=== PATIENT | male | born 1985 | race Caucasian/White ===

== ENCOUNTER 2016-12-10 13:38 | Emergency (ER) | payer OTHER ==
[~2016-12-10] VITALS: Ht 180.3 cm; Wt 90.5 kg
[2016-12-10 13:48] VITALS: Ht 180.3 cm; Wt 90.5 kg
[2016-12-10 14:06] VITALS: BP 139/84
[2016-12-10 15:10] LABS: BASOPHILS % 0.2 % (0.0-2.0); EOSINOPHILS # 0.1 10^3/ul (0.0-0.5); EOSINOPHILS % 1.5 % (0.0-7.0); LYMPHOCYTES # 1.3 10^3/ul (0.8-2.9); LYMPHOCYTES % 25.7 % (15.0-51.0); MEAN CORPUSCULAR HEMOGLOBIN 29.5 pg (29.0-33.0); MEAN CORPUSCULAR HGB CONC 33.4 g/dl (32.0-37.0); MEAN CORPUSCULAR VOLUME 88.4 fl (82.0-101.0); MEAN PLATELET VOLUME 7.5 fl (7.4-10.4); MONOCYTE # 0.4 10^3/ul (0.3-0.9); MONOCYTES % 7.9 % (0.0-11.0); NEUTROPHIL # 3.3 10^3/ul (1.6-7.5); NEUTROPHILS % 64.7 % (39.0-77.0); PLATELET COUNT 228 10^3/UL (140-440); RED BLOOD COUNT 5.09 10^6/ul (4.70-6.10); RED CELL DISTRIBUTION WIDTH 13.3 % (11.5-14.5); UNCORRECTED WBC 5.1 10^3/ul (4.8-10.8); WHITE BLOOD COUNT 5.1 10^3/ul (4.8-10.8)
[2016-12-10 15:12] LABS: CONDITION 1
[2016-12-10 15:18] LABS: ADD UMIC NO; URINE BILIRUBIN (Dip) NEGATIVE (NEGATIVE); URINE BLOOD (Dip) NEGATIVE (NEGATIVE); URINE COLOR YELLOW (YELLOW); URINE GLUCOSE (Dip) NEGATIVE (NEGATIVE); URINE KETONES (Dip) 15 (NEGATIVE); URINE LEUKOCYTE ESTERASE (Dip) NEGATIVE (NEGATIVE); URINE NITRITE (Dip) NEGATIVE (NEGATIVE); URINE TOTAL PROTEIN (Dip) NEGATIVE (NEGATIVE); URINE UROBILINOGEN (Dip) 0.2 E.U./dL (0.1-1.0)
[2016-12-10 15:21] LABS: POTASSIUM 4.1 mmol/L (3.5-5.1)
[2016-12-10 15:23] LABS: CREATININE 0.86 mg/dl (0.61-1.24)
[2016-12-10 15:24] LABS: ALBUMIN/GLOBULIN RATIO 1.35; BILIRUBIN,INDIRECT 1.3 mg/dl (0-1.1); BILIRUBIN,TOTAL 1.3 mg/dl (0.2-1.3); CALCIUM 9.6 mg/dl (8.4-10.2); TOTAL PROTEIN 8.7 g/dl (6.1-8.1)
--- NOTE | 2016-12-10 15:41 | RADRPT ---
PROCEDURE: CT Abdomen and Pelvis without contrast. CLINICAL INDICATION: Abdominal pain. Black stool. TECHNIQUE: CT scan of the abdomen and pelvis without contrast was performed on a multi-slice CT sc sorin without intravenous contrast. Coronal and sagittal reformatted images were obtained from the axial source images. Images were reviewed on a high-resolution PACS workstation. One or more of the following does reduction techniques were used: Automated exposure control; adjustment of the mA an d/or kV according to patient size; use of the aorta of reconstruction technique. The total exam CTD I equals 16.7 mGy and the total exam DLP equals 944.6 mGy-cm. COMPARISON: None available. FINDINGS: The lung bases are clear. Heart size is normal, and there is no evidence of pericardial thickening or effusion. The liver, spleen, and pancreas are normal given limitations of a noncontrast CT examination. Galls tones are identified within the gallbladder. There is no pericholecystic inflammatory change or hank dence of gallbladder wall thickening. The adrenal glands are normal. The kidneys without renal calculus or hydronephrosis. The aorta is of normal caliber. There is no retroperitoneal lymph node enlargment. There is no evidence of large or small bowel obstruction. There is moderate to large retained colon ic stool. Portions of a normal appendix are identified. There is no evidence of acute appendicitis . No free fluid or fluid collections are identified. No inflammatory changes are seen. There is a small periumbilical hernia containing only fat No enlarged pelvic sidewall lymph nodes are seen. The bladder is decompressed and collapsed. No f ree fluid is identified. The inguinal regions are unremarkable. The bones are intact. IMPRESSION: 1. No CT evidence of acute intra-abdominal or pelvic process. 2. Cholelithiasis. 3. Pfcnwjin-xc-onpwk retained colonic stool, correlate with constipation. 4. Small periumbilical hernia containing only fat. RPTAT: KK .Mil Avalos MD, MD Date Time Electronically viewed and signed by .Mil Avalos MD, MD on 12/10/2016 15:41 .B/
--- NOTE | 2016-12-10 15:49 | ERD ---
ER Documentation Chief Complaint Date/Time DATE: 12/10/16 TIME: 15:43 Chief Complaint Blood in stool and AP X 10days. HPI This is a 31-year-old male who presents to the emergency department today with complaints of black stool and abdominal pain. Patient states that one month ago he was diagnosed with a radial head fracture and has been taking 2-3 Motrin pills per day. States he has had this black stool and abdominal pain for the past 7-10 days. Denies any vomiting or diarrhea. Denies any fevers or chills. ROS All systems reviewed and are negative except as per history of present illness. Medications Home Meds Active Scripts Famotidine* (Pepcid*) 20 Mg Tablet, 20 MG PO BID for 10 Days, TAB Prov:DIETER CARROLL PA-C 12/10/16 Hydrocodone/Acetaminophen ([place] 10-325 Tablet) 1 Each Tablet, 1 TAB PO Q6H Y for PAIN, #20 TAB Prov:DIETER CARROLL PA-C 12/10/16 Acetaminophen* (Tylophen*) 500 Mg Capsule, 1 CAP PO Q6H Y for PAIN AND OR ELEVATED TEMP, #30 CAP Prov:DIETER CARROLL PA-C 12/10/16 Allergies Allergies: Coded Allergies: No Known Allergy (Unverified , 12/10/16) PMhx/Soc History of Surgery: No Anesthesia Reaction: No Hx Neurological Disorder: No Hx Respiratory Disorders: Yes (ASTHMA) Hx Cardiac Disorders: No Hx Psychiatric Problems: No Hx Miscellaneous Medical Probl: No Hx Alcohol Use: No Hx Substance Use: No Hx Tobacco Use: No Smoking Status: Never smoker Physical Exam Vitals Vital Signs Date Time Temp Pulse Resp B/P Pulse Ox O2 Delivery O2 Flow Rate FiO2 12/10/16 14:06 139/84 12/10/16 13:48 98.5 99 18 164/102 100 Physical Exam Const: No acute distress Head: Atraumatic Eyes: Normal Conjunctiva ENT: Normal External Ears, Nose and Mouth. Neck: Full range of motion..~ No meningismus. Resp: Clear to auscultation bilaterally Cardio: Regular rate and rhythm, no murmurs Abd: Soft, epigastric and diffuse lower abdominal pain non distended. Normal bowel sounds. No tenderness at McBurney's. Skin: No petechiae or rashes Neur: Awake and alert Psych: Normal Mood and Affect Result Diagram: 12/10/16 1455 12/10/16 1455 Results 24 hrs Laboratory Tests Test 12/10/16 14:55 12/10/16 15:10 Alanine Aminotransferase (ALT/SGPT) 24IU/L Albumin 5.0g/dl Albumin/Globulin Ratio 1.35 Alkaline Phosphatase 70IU/L Anion Gap 19 Aspartate Amino Transf (AST/SGOT) 32IU/L Basophils # 0.010^3/ul Basophils % 0.2% Blood Urea Nitrogen 15mg/dl Calcium Level 9.6mg/dl Carbon Dioxide Level 29mmol/L Chloride Level 100mmol/L Creatinine 0.86mg/dl Direct Bilirubin 0.00mg/dl Eosinophils # 0.110^3/ul Eosinophils % 1.5% Globulin 3.70g/dl Glucose Level 93mg/dl Hematocrit 45.0% Hemoglobin 15.0g/dl Indirect Bilirubin 1.3mg/dl Lipase 400U/L Lymphocytes # 1.310^3/ul Lymphocytes % 25.7% Mean Corpuscular Hemoglobin 29.5pg Mean Corpuscular Hemoglobin Concent 33.4g/dl Mean Corpuscular Volume 88.4fl Mean Platelet Volume 7.5fl Monocytes # 0.410^3/ul Monocytes % 7.9% Neutrophils # 3.310^3/ul Neutrophils % 64.7% Nucleated Red Blood Cells # 0.010^3/ul Nucleated Red Blood Cells % 0.0/100WBC Platelet Count 65553^3/UL Potassium Level 4.1mmol/L Red Blood Count 5.0910^6/ul Red Cell Distribution Width 13.3% Sodium Level 144mmol/L Stool Occult Blood NEGATIVE Total Bilirubin 1.3mg/dl Total Protein 8.7g/dl White Blood Count 5.110^3/ul Urine Bilirubin NEGATIVE Urine Clarity CLEAR Urine Color YELLOW Urine Glucose NEGATIVE% Urine Hemoglobin NEGATIVE Urine Ketones 15 Urine Leukocyte Esterase NEGATIVE Urine Nitrite NEGATIVE Urine Specific [place] >=1.030 Urine Total Protein NEGATIVE Urine Urobilinogen 0.2 E.U./dL Urine pH 6.0 Patient: JESSENIA GARZA : 1985 Age: 31 Sex: M MR #: [id number] DOS: 12/10/16 1448 Ordering MD: DIETER CARROLL PA-C Location: [facility] Room/Bed: PROCEDURE: CT Abdomen and Pelvis without contrast. CLINICAL INDICATION: Abdominal pain. Black stool. TECHNIQUE: CT scan of the abdomen and pelvis without contrast was performed on a multi-slice CT scanner without intravenous contrast. Coronal and sagittal reformatted images were obtained from the axial source images. Images were reviewed on a high-resolution PACS workstation. One or more of the following does reduction techniques were used: Automated exposure control; adjustment of the mA and/or kV according to patient size; use of the aorta of reconstruction technique. The total exam CTDI equals 16.7 mGy and the total exam DLP equals 944.6 mGy-cm. COMPARISON: None available. FINDINGS: The lung bases are clear. Heart size is normal, and there is no evidence of pericardial thickening or effusion. The liver, spleen, and pancreas are normal given limitations of a noncontrast CT examination. Gallstones are identified within the gallbladder. There is no pericholecystic inflammatory change or evidence of gallbladder wall thickening. The adrenal glands are normal. The kidneys without renal calculus or hydronephrosis. The aorta is of normal caliber. There is no retroperitoneal lymph node enlargment. There is no evidence of large or small bowel obstruction. There is moderate to large retained colonic stool. Portions of a normal appendix are identified. There is no evidence of acute appendicitis. No free fluid or fluid collections are identified. No inflammatory changes are seen. There is a small periumbilical hernia containing only fat No enlarged pelvic sidewall lymph nodes are seen. The bladder is decompressed and collapsed. No free fluid is identified. The inguinal regions are unremarkable. The bones are intact. IMPRESSION: 1. No CT evidence of acute intra-abdominal or pelvic process. 2. Cholelithiasis. 3. Ampzfscd-vr-naqws retained colonic stool, correlate with constipation. 4. Small periumbilical hernia containing only fat. RPTAT: KK .Mil Avalos MD, MD Date Time Electronically viewed and signed by .Mil Avalos MD, MD on 2016 15:41 .B/ CC: DIETER CARROLL PA-C Procedures/[facility] This 31-year-old male who presented to the emergency department today complaining of abdominal pain and black stool for the past 7-10 days. Patient had been taking 2-3 Motrin pills per day. Patient did have some diffuse abdominal pain as well as epigastric pain and therefore did obtain laboratory work as well as imaging. Laboratory work shows no elevated white blood cell count. He is not anemic. Platelets are within normal limits. Left lites are within normal limits. Liver function is within normal limits. Lipase is elevated. UA negative. Fecal occult is negative CT abdomen and pelvis noncontrast shows gallstones. There is No evidence of acute intra-abdominal or pelvic process. There is no evidence of large or small bowel obstruction. There is moderate to large retained colonic stool. Appendix is normal. No evidence of acute appendicitis. There is no free fluid or fluid collections. There is a small periumbilical hernia containing only fat. Patient abdominal pain may be related to his gallstone and biliary colic. Patient's lipase is elevated however I have low suspicion for acute pancreatitis. Patient's epigastric pain may be related to gastritis versus ulcer. I have explained this to the patient. Patient declined pain medication here in the emergency department as he did not want to take any occasion at this time. Given the prescription for [place] for severe pain otherwise he may take Tylenol. I'll also give him a prescription for Pepcid. At this time the patient is stable for discharge and outpatient management. Patient should follow up with their PCP in the next 1-2 days. They may return to the emergency department sooner for any persistent or worsening of symptoms. Patient understood and agreed with the plan. At this time the patient is stable for discharge and outpatient management. Patient should follow up with their PCP in the next 1-2 days for referral to general surgery GI specialist. They may return to the emergency department sooner for any persistent or worsening of symptoms. Patient understood and agreed with the plan. Discussed the patient with Dr. Larios and he taken he is in agreement with the plan Departure Diagnosis: Primary Impression: Abdominal pain Abdominal location: generalized Qualified Code: R10.84 - Generalized abdominal pain Additional Impression: Gallstones Condition: Fair DIETER CARROLL PA-C Dec 10, 2016 15:49
[2016-12-10] MEDS ORDERED: HYDR-902 PO (16:11)
[2016-12-10] MEDS ORDERED: ACET500C5 PO (16:11)
[2016-12-10] MEDS ORDERED: FAMO-18 PO (16:12)
== END 2016-12-10 16:21 | disposition home or self-care (01) ==
LOC: FTE 13:38
DX: R10.84 Generalized abdominal pain (principal); K80.20 Calculus of gallbladder without cholecystitis without obstruction; J45.909 Unspecified asthma, uncomplicated
CPT/HCPCS: 74176; 80053; 81003; 82270; 83690; 85025

== ENCOUNTER 2017-01-08 20:57 | Emergency (ER) | payer OTHER ==
[~2017-01-08] VITALS: Ht 180.3 cm; Wt 88.0 kg
[~2017-01-08 20:57] MED LIST: ACET500C5 PO; FAMO-18 PO; HYDR-902 PO
[2017-01-08 22:03] VITALS: Ht 180.3 cm; Wt 88.0 kg
[2017-01-08] MEDS ORDERED: RANITIDINE 150 MG TAB PO ONE (23:00)
[2017-01-08] MEDS ORDERED: LIDOCAINE/MYLANTA 40 ML BTL PO ONE (23:00)
--- NOTE | 2017-01-08 23:15 | RADRPT ---
PROCEDURE: XR Chest. CLINICAL INDICATION: Chest pain. TECHNIQUE: Single frontal view. COMPARISON: None. FINDINGS: The lungs are clear. The heart size is normal. There is no pleural effusion. There is no pneumothorax. IMPRESSION: 1. Normal chest radiograph. RPTAT: QQ .Gato Cox MD, Date Time Electronically viewed and signed by .Gato Cox MD, on 01/08/2017 23:14 .R/
[2017-01-08] MEDS ORDERED: RANI150T9 PO (23:48)
--- NOTE | 2017-01-09 00:03 | ERD ---
ER Documentation Chief Complaint Date/Time DATE: 01/08/17 TIME: 23:59 Chief Complaint chest wall pain x 1 week. Hx of asthma HPI 31-year-old male with a past medical history of asthma presents to the ED complaining of epigastric and chest pain that started intermittently on December 30, 2016. 1 week and 2 days ago. States that he saw the doctor at his [facility] [place] and had an EKG done which was negative for any acute findings or ischemia. States that he saw a supervisor hanging and trimming after and stated that it could be due to acid reflux. States that he got a prescription for omeprazole but has not filled the prescription. States that he has been burping and his pain is worse with food. Describes the pain as a burning sensation and states that it sometimes is sharp. Denies any family history of heart attacks. Denies any coughing, fever, chills, nausea, vomiting, diarrhea. Denies any smoking, alcohol use, drug use. ROS All systems reviewed and are negative except as per history of present illness. Medications Home Meds Active Scripts Ranitidine Hcl* (Zantac*) 150 Mg Tablet, 150 MG PO BID Y for EPIGASTRIC PAIN, # 30 TAB Prov:ESA NIELSEN PA-C 01/08/17 Famotidine* (Pepcid*) 20 Mg Tablet, 20 MG PO BID for 10 Days, TAB Prov:DIETER CARROLL PA-C 12/10/16 Hydrocodone/Acetaminophen ([place] 10-325 Tablet) 1 Each Tablet, 1 TAB PO Q6H Y for PAIN, #20 TAB Prov:DIETER CARROLL PA-C 12/10/16 Acetaminophen* (Tylophen*) 500 Mg Capsule, 1 CAP PO Q6H Y for PAIN AND OR ELEVATED TEMP, #30 CAP Prov:DIETER CARROLL PA-C 12/10/16 Allergies Allergies: Coded Allergies: No Known Allergy (Unverified , 12/10/16) PMhx/Soc History of Surgery: No Anesthesia Reaction: No Hx Neurological Disorder: No Hx Respiratory Disorders: Yes (ASTHMA) Hx Cardiac Disorders: No Hx Psychiatric Problems: No Hx Miscellaneous Medical Probl: Yes (gallstones) Hx Alcohol Use: No Hx Substance Use: No Hx Tobacco Use: No Smoking Status: Never smoker Physical Exam Vitals Vital Signs Date Time Temp Pulse Resp B/P Pulse Ox O2 Delivery O2 Flow Rate FiO2 01/08/17 22:03 98.0 92 20 134/78 98 Physical Exam Const: Eav-jxg-ggfapguse, well-nourished. In no acute distress. Head: Atraumatic, normocephalic Eyes: Normal Conjunctiva without injection. No purulent discharge. ENT: Normal external ear, nose. Moist oropharynx without tonsillar exudates. Non -erythematous pharynx. Uvula midline. No drooling. No trismus. Neck: No cervical midline tenderness. Full range of motion. No meningismus. No cervical lymphadenopathy. No JVD. Resp: Clear to auscultation bilaterally. No wheezing, rhonchi, rales, or crackles. No accessory muscle use. No retractions. Cardio: Regular rate and rhythm. No murmurs, rubs or gallops. Chest: Slight anterior chest wall pain is reproducible upon palpation. Abd: Soft, slight epigastric tenderness, non distended. Normal bowel sounds. No palpable masses. No rebound tenderness. No guarding. Negative McBurney's point. Negative psoas sign. Negative obturator sign. Skin: No petechiae or rashes Back: No midline tenderness. No CVA tenderness. Ext: No cyanosis, or edema. Neur: Awake and alert. Normal gait. Normal coordination. Psych: Normal Mood and Affect Results 24 hrs Current Medications Medications (Trade) Dose Ordered Sig/Dionisio Route PRN Reason Start Time Stop Time Status Last Admin Dose Admin Miscellaneous Medication (Gi Cocktail (2)) 40 ml ONCE ONCE PO 01/08/17 23:00 01/08/17 23:01 DC 01/08/17 22:54 Ranitidine HCl (Zantac) 150 mg ONCE ONCE PO 01/08/17 23:00 01/08/17 23:01 DC 01/08/17 23:14 Procedures/MDM This is a 31-year-old male with a past medical history of asthma presents to the ED complaining of epigastric and anterior chest pain. Patient is afebrile and nontoxic-appearing. Patient was treated here in the ED with GI cocktail and Zantac with improvement of his symptoms. EKG and chest x-ray was ordered to further evaluate patient. EKG reviewed and interpreted by Dr. Willams Rate/Rhythm: [89 bpm, Normal Sinus Rhythm] No ectopy, no ST elevations, normal axis. QRS, ST, T-waves: [No changes consistent w/ acute ischemia] Impression: [No evidence of ischemia or arrhythmia] PROCEDURE: XR Chest. CLINICAL INDICATION: Chest pain. TECHNIQUE: Single frontal view. COMPARISON: None. FINDINGS: The lungs are clear. The heart size is normal. There is no pleural effusion. There is no pneumothorax. IMPRESSION: 1. Normal chest radiograph. Patient symptoms are likely due to acid reflux vs gastritis. I strictly instructed patient to follow-up with his supervisor hanging and trimming and keep his appointment on February 10, 2017 for the endoscopy. Low suspicion for acute myocardial infarction, pneumothorax, pneumonia, cardiac tamponade, pulmonary embolism, pleural effusion, AAA, aortic dissection, Boerhaave's syndrome, cardiac dysrhythmias,meningitis, intracranial bleed, seizure, stroke, TIA or other emergent conditions. Low suspicion for is not limited to cholecystitis, choledocholithiasis, cholangitis, pancreatitis, appendicitis, bowel obstruction , ileus, volvulus, nephrolithiasis, pyelonephritis, hepatitis, perforated viscus , diverticulitis, abdominal hernia, acute abdomen, mesenteric ischemia or other emergent conditions. Discharge medications: Follow up with primary care physician in 1-2 days for referral to supervisor hanging and trimming. Instructed patient to return to the ED sooner for any worsening symptoms. Patient's questions were answered. Patient understood and agreed with discharge plan. Patient discharged stable. Discharge medications: Zantac Follow up with primary care physician in 1-2 days. Instructed patient to return to the ED sooner for any worsening symptoms. Patient's questions were answered. Patient understood and agreed with discharge plan. Patient discharged stable. Departure Diagnosis: Primary Impression: Chest pain Chest pain type: unspecified Qualified Code: R07.9 - Chest pain, unspecified type Additional Impression: Burping Condition: Stable Patient Instructions: Lifestyle Changes for Controlling GERD, Gerd (Adult) Referrals: COMMUNITY CLINICS YOU HAVE RECEIVED A MEDICAL SCREENING EXAM AND THE RESULTS INDICATE THAT YOU DO NOT HAVE A CONDITION THAT REQUIRES URGENT TREATMENT IN THE EMERGENCY DEPARTMENT. FURTHER EVALUATION AND TREATMENT OF YOUR CONDITION CAN WAIT UNTIL YOU ARE SEEN IN YOUR DOCTORS OFFICE WITHIN THE NEXT 1-2 DAYS. IT IS YOUR RESPONSIBILITY TO MAKE AN APPOINTMENT FOR FOLOW-UP CARE. IF YOU HAVE A PRIMARY DOCTOR --you should call your primary doctor and schedule an appointment IF YOU DO NOT HAVE A PRIMARY DOCTOR YOU CAN CALL OUR PHYSICIAN REFERRAL HOTLINE AT IF YOU CAN NOT AFFORD TO SEE A PHYSICIAN YOU CAN CHOSE FROM THE FOLLOWING [facility] [address] [facility] [address] [facility] [address] [facility] [address] [facility] [address] [facility]. [facility] [address] [facility]. [facility] YOU HAVE RECEIVED A MEDICAL SCREENING EXAM AND THE RESULTS INDICATE THAT YOU DO NOT HAVE A CONDITION THAT REQUIRES URGENT TREATMENT IN THE EMERGENCY DEPARTMENT. FURTHER EVALUATION AND TREATMENT OF YOUR CONDITION CAN WAIT UNTIL YOU ARE SEEN IN YOUR DOCTORS OFFICE WITHIN THE NEXT 1-2 DAYS. IT IS YOUR RESPONSIBILITY TO MAKE AN APPOINTMENT FOR FOLOW-UP CARE. IF YOU HAVE A PRIMARY DOCTOR --you should call your primary doctor and schedule and appointment IF YOU DO NOT HAVE A PRIMARY DOCTOR YOU CAN CALL OUR PHYSICIAN REFERRAL HOTLINE AT . IF YOU CAN NOT AFFORD TO SEE A PHYSICIAN YOU CAN CHOSE FROM THE FOLLOWING [facility] INSTITUTIONS: [facility] [address] [place] [address] [facility] [address] [place] [address] [facility] [address] [place] [address] [facility] URGENT CARE/SPECIALTIES Additional Instructions: FOLLOW UP WITH YOUR PRIMARY CARE PHYSICIAN TOMORROW. Follow up with your supervisor hanging and trimming. Return to this facility if you are not improving as expected. ESA NIELSEN PA-C Jan 09, 2017 00:03
== END 2017-01-09 00:17 | disposition home or self-care (01) ==
LOC: FTE 20:57
DX: R07.89 Other chest pain (principal); J45.909 Unspecified asthma, uncomplicated; R14.2 Eructation
CPT/HCPCS: 71010; 93005; Z7502; Z7610